=== PATIENT | female | born 1995 | race Caucasian/White ===

== ENCOUNTER 2016-08-08 22:07 | Emergency (ER) | payer SELFPAY ==
[~2016-08-08] VITALS: Ht 162.6 cm; Wt 67.0 kg
[~2016-08-08 22:07] MED LIST: CEPH-443 PO; IBUP-1542 PO; OXYC-279 PO
[2016-08-08 22:16] VITALS: Ht 162.6 cm; Wt 67.0 kg
--- NOTE | 2016-08-08 22:55 | ERA ---
ER Documentation Chief Complaint Date/Time DATE: 08/08/16 TIME: 22:54 Chief Complaint Abdominal pain x 2 days HPI The patient is a 20-year-old female, presenting to the ER because of abdominal pain and right low back pain for 2 days. She had similar symptoms previously from kidney infection, she complains of painful urination, intermittent cough for 1 week, nasal congestion. She denies neck pain, chest pain, dyspnea, diarrhea, constipation. She does not smoke nor drink Past medical/surgical history: None ROS All systems reviewed and are negative except as per history of present illness. Medications Home Meds Active Scripts Hydrocodone/Acetaminophen ([place] 5-325 Tablet) 1 Each Tablet, 1 TAB PO Q6H Y for PAIN, #7 TAB Prov:RAINA GEORGE MD 08/09/16 Ibuprofen* (Motrin*) 600 Mg Tab, 600 MG PO Q6H Y for PAIN AND OR ELEVATED TEMP, #20 TAB Prov:RAINA GEORGE MD 08/09/16 Ciprofloxacin Hcl* (Ciprofloxacin Hcl*) 500 Mg Tablet, 500 MG PO BID for 10 Days , TAB Prov:RAINA GEORGE MD 08/09/16 Oxycodone HCl/Acetaminophen (Percocet 5-325 mg Tablet) 1 Each Tablet, 1 EACH PO TID for PAIN, #9 TAB Prov:ANDREE PDERAZA MD 03/11/16 Ibuprofen* (Motrin*) 600 Mg Tab, 600 MG PO Q8 Y for PAIN, #30 TAB Prov:ANDREE PEDRAZA MD 03/11/16 Cephalexin* (Keflex*) 500 Mg Capsule, 500 MG PO QID for 5 Days, CAP Prov:ANDREE PEDRAZA MD 03/11/16 Allergies Allergies: Coded Allergies: No Known Allergy (Unverified , 03/11/16) PMhx/Soc History of Surgery: No Anesthesia Reaction: No Hx Neurological Disorder: No Hx Respiratory Disorders: No Hx Cardiac Disorders: No Hx Psychiatric Problems: No Hx Miscellaneous Medical Probl: No Hx Alcohol Use: No Hx Substance Use: No Hx Tobacco Use: No Physical Exam Vitals Vital Signs Date Time Temp Pulse Resp B/P Pulse Ox O2 Delivery O2 Flow Rate FiO2 08/09/16 02:20 104 18 99 Room Air 08/09/16 00:50 99.2 122 20 100 Room Air 08/08/16 22:16 103.0 170 20 132/81 100 Physical Exam Const: No acute distress. Head: Atraumatic. Eyes: Normal Conjunctiva. ENT: Normal External Ears, Nose and Mouth. Neck: Full range of motion. No meningismus. Resp: Clear to auscultation bilaterally. Cardio: Regular but tachycardic Abd: Soft, non distended, normal bowel sounds, positive right CVA area tenderness, mild right lower quadrant, right flank tenderness, no rigidity , rebound, CVA tenderness Skin: No petechiae or rashes. Back: No midline or flank tenderness. Ext: No cyanosis, or edema. Neur: Awake and alert. No focal deficit Psych: Normal Mood and Affect. Result Diagram: 08/08/16229908/08/162299 Results 24 hrs Laboratory Tests Test 08/08/16 23:00 08/09/16 01:20 Activated Partial Thromboplast Time 25.5Sec Alanine Aminotransferase (ALT/SGPT) 19IU/L Albumin 4.3g/dl Albumin/Globulin Ratio 1.04 Alkaline Phosphatase 88IU/L Anion Gap 21 Aspartate Amino Transf (AST/SGOT) 20IU/L Basophils # 0.110^3/ul Basophils % 0.3% Blood Urea Nitrogen 11mg/dl Calcium Level 9.2mg/dl Carbon Dioxide Level 22mmol/L Chloride Level 103mmol/L Creatinine 0.63mg/dl Direct Bilirubin 0.00mg/dl Eosinophils # 0.010^3/ul Eosinophils % 0.1% Globulin 4.10g/dl Glucose Level 110mg/dl Hematocrit 33.0% Hemoglobin 11.3g/dl INR International Normalized Ratio 0.97 Indirect Bilirubin 0.3mg/dl Lactic Acid Level 2.2mmol/L 0.8mmol/L Lymphocytes # 0.610^3/ul Lymphocytes % 4.3% Mean Corpuscular Hemoglobin 29.1pg Mean Corpuscular Hemoglobin Concent 34.2g/dl Mean Corpuscular Volume 85.1fl Mean Platelet Volume 10.3fl Monocytes # 0.310^3/ul Monocytes % 1.8% Neutrophils # 13.810^3/ul Neutrophils % 93.1% Nucleated Red Blood Cells # 0.010^3/ul Nucleated Red Blood Cells % 0.0/100WBC Platelet Count 49760^3/UL Potassium Level 3.7mmol/L Prothrombin Time 12.9Sec Prothrombin Time Ratio 1.0 Red Blood Count 3.8810^6/ul Red Cell Distribution Width 15.0% Sodium Level 142mmol/L Total Bilirubin 0.3mg/dl Total Protein 8.4g/dl Troponin I < 0.012ng/ml Urine Bacteria MODERATE Urine Bilirubin NEGATIVE Urine Clarity SLIGHTLY CLOUDY Urine Color LT. YELLOW Urine Glucose NEGATIVE% Urine Hemoglobin 1+ Urine Ketones NEGATIVE Urine Leukocyte Esterase 2+ Urine Microscopic RBC 10-25/HPF Urine Microscopic WBC >200/HPF Urine Nitrite POSITIVE Urine Specific [place] 1.015 Urine Squamous Epithelial Cells MODERATE Urine Total Protein TRACE Urine Urobilinogen 0.2 E.U./dL Urine pH 7.0 White Blood Count 14.810^3/ul Current Medications Medications (Trade) Dose Ordered Sig/Rory Route PRN Reason Start Time Stop Time Status Last Admin Dose Admin Acetaminophen 650 mg 650 mg ONCE STAT PO 08/08/16 22:57 08/08/16 22:59 DC 08/08/16 23:08 Sodium Chloride (NS) 2,080 ml @ 2,080 mls/hr BOLUS X1 ONCE IV 08/08/16 23:00 08/08/16 23:59 DC 08/08/16 23:08 Morphine Sulfate (morphine) 4 mg ONCE STAT IV 08/08/16 23:11 08/08/16 23:12 DC 08/08/16 23:18 Ondansetron HCl 4 mg 4 mg ONCE STAT IV 08/08/16 23:11 08/08/16 23:12 DC 08/08/16 23:18 Ceftriaxone Sodium (Rocephin) 50 ml @ 100 mls/hr ONCE ONCE IVPB 08/09/16 00:30 08/09/16 00:59 DC 08/09/16 00:42 Procedures/MDM EKG: Read by emergency physician Rate/Rhythm: Sinus tachycardia at 165 beats per min QRS, ST, T-waves: No ST elevation, no T wave inversion, shortened ME interval , inferior, anterior, lateral ST and T abnormality Impression: Abnormal EKG [place] [id number] Radiology Main Line: [phone] DIAGNOSTIC IMAGING REPORT Patient: MELISSA LANDIS : 1995 Age: 20 Sex: F MR #: [id number] DOS: 08/08/16 2257 Ordering MD: RAINA GEORGE MD Location: E/R Room/Bed: PROCEDURE: CHEST - 1 VIEW CLINICAL INDICATION: 20-year-old female with shortness of breath and sepsis. TECHNIQUE: A single frontal upright view of the chest was performed portably. The images were reviewed on a PACS workstation. COMPARISON: Chest x-ray December 26, 2015. FINDINGS: The cardiomediastinal silhouette has a normal appearance. There is no evidence for an infiltrate. The pulmonary vascularity is within normal limits. There is no evidence for pneumothorax or pneumomediastinum. The osseous structures are intact. IMPRESSION: No evidence for active cardiopulmonary disease. .Umberto Haskins MD, Date Time Electronically viewed and signed by .Umberto Haskins MD, MD on 08/08/2016 23:41 .M/ CC: RAINA GEORGE MD [place] [id number] Radiology Main Line: [phone] DIAGNOSTIC IMAGING REPORT Patient: MELISSA LANDIS : 1995 Age: 20 Sex: F MR #: [id number] DOS: 08/08/16 2301 Ordering MD: RAINA GEORGE MD Location: E/R Room/Bed: PROCEDURE: CT ABDOMEN/PELVIS WITHOUT CONTRAST CLINICAL INDICATION: 20-year-old female with abdominal pain. TECHNIQUE: The study was performed utilizing a [employer] 64-slice CT scanner. Direct axial sections were obtained through the abdomen and pelvis without the use of intravenous contrast material. Sagittal and coronal reformations were obtained. Automated exposure control and iterative reconstruction techniques were utilized for this examination. The images were reviewed on a PACS workstation. CTD/vol = 8.1 mGy; Total Exam DLP = 459.6 mGy- cm. COMPARISON: None. FINDINGS: The lung bases are unremarkable. There is no evidence for significant pleural effusion. The liver has a normal size and contour without focal areas of abnormal density. No intrahepatic nor extrahepatic biliary ductal dilatation is seen. The gallbladder demonstrates no wall thickening nor pericholecystic fluid. No biliary stones are evident. The pancreas is without areas of abnormal attenuation. The spleen is identified and has a normal size without abnormal density. The adrenal glands are unremarkable. The kidneys are without abnormal density. No hydroureteronephrosis nor nephroureterolithiasis is evident. The urinary bladder contains urine. There is fecalization within the terminal ileum. There is retained stool identified within the ascending and transverse colon without obstruction. The appendix is retrocecal and is without abnormal thickening or surrounding inflammatory reaction. The uterus is unremarkable. There is a right ovarian cyst measuring approximately 1.6 x 1.5 x 1.6 cm. There is no significant free fluid. The aortoiliac vessels are without aneurysmal dilatation. The osseous structures are intact. IMPRESSION: 1. No CT evidence for obstructive uropathy or renal calculi. 2. Fecalization of the distal small bowel with retained stool in the ascending and transverse colon without obstruction. 3. No CT evidence for appendicitis. 4. Right ovarian cyst. .Umberto Haskins MD, Date Time Electronically viewed and signed by .Umberto Haskins MD, MD on 08/09/2016 02:02 .M/ CC: RAINA GEORGE MD MEDICAL MAKING DECISION: The patient is a 20-year-old female, presenting with acute right pyelonephritis, acute dehydration, right ovarian cyst. She was treated with Tylenol for fever, morphine 4 mg IV for pain, Zofran formula IV for nausea, normal saline 30 mL/kg IV for acute dehydration, Rocephin 1 g IV for acute right pyelonephritis with good response. Her vital signs improved. Lactate level went from 2.2 to 0.8 after the aforementioned treatment. She is stable for outpatient follow-up the differential diagnoses considered include but are not limited to cholelithiasis, cholecystitis, cystitis, pancreatitis, hepatitis, gastritis, peptic ulcer disease, gastric ulcer, appendicitis, diverticulitis, cholangitis, choledocholithiasis, partial small bowel obstruction. Departure Diagnosis: Primary Impression: Pyelonephritis Additional Impressions: Right ovarian cyst Anemia Condition: Good Comments She was discharged with Karla Maya Motrin I discussed the findings with the patient. I advised the patient to follow-up with the primary physician in about 1-2 days, sooner if needed and return if any concern. The patient's blood pressure was elevated (>120/80) but appears stable without evidence of hypertension emergency or urgency. The patient was counseled about the risks of hypertension and urged to pursue outpatient monitoring and therapy within a week with their primary care physician. RAINA GEORGE MD Aug 08, 2016 22:55
[2016-08-08] MEDS ORDERED: ACETAMINOPHEN 325 MG TAB PO STA (22:57)
[2016-08-08] MEDS ORDERED: SOD CHLORIDE 0.9% IV ONE (23:00)
[2016-08-08] MEDS ORDERED: ONDANSETRON 4 MG INJ IV STA (23:11)
[2016-08-08] MEDS ORDERED: morphine 4 MG/ML VIAL IV STA (23:11)
[2016-08-08 23:29] LABS: ADD UMIC YES; URINE BILIRUBIN (Dip) NEGATIVE (NEGATIVE); URINE BLOOD (Dip) 1+ (NEGATIVE); URINE COLOR LT. YELLOW (YELLOW); URINE GLUCOSE (Dip) NEGATIVE (NEGATIVE); URINE KETONES (Dip) NEGATIVE (NEGATIVE); URINE LEUKOCYTE ESTERASE (Dip) 2+ (NEGATIVE); URINE NITRITE (Dip) POSITIVE (NEGATIVE); URINE TOTAL PROTEIN (Dip) TRACE (NEGATIVE); URINE UROBILINOGEN (Dip) 0.2 E.U./dL (0.1-1.0)
[2016-08-08 23:38] LABS: INR 0.97; PROTIME 12.9 Sec (12.2-14.2)
[2016-08-08 23:39] LABS: PARTIAL THROMBOPLASTIN TIME 25.5 Sec (25.0-35.0)
[2016-08-08 23:40] LABS: ALBUMIN 4.3 g/dl (3.3-4.9); CHLORIDE 103 mmol/L (97-110); POTASSIUM 3.7 mmol/L (3.5-5.1); SODIUM 142 mmol/L (135-144)
[2016-08-08 23:42] LABS: CREATININE 0.63 mg/dl (0.44-1.00)
--- NOTE | 2016-08-08 23:42 | RADRPT ---
PROCEDURE: CHEST - 1 VIEW CLINICAL INDICATION: 20-year-old female with shortness of breath and sepsis. TECHNIQUE: A single frontal upright view of the chest was performed portably. The images were rev iewed on a PACS workstation. COMPARISON: Chest x-ray December 26, 2015. FINDINGS: The cardiomediastinal silhouette has a normal appearance. There is no evidence for an infiltrate. T he pulmonary vascularity is within normal limits. There is no evidence for pneumothorax or pneumomed iastinum. The osseous structures are intact. IMPRESSION: No evidence for active cardiopulmonary disease. .Umberto Haskins MD, MD Date Time Electronically viewed and signed by .Umberto Haskins MD, on 08/08/2016 23:41 .M/
[2016-08-08 23:43] LABS: ALANINE AMINOTRANSFERASE 19 IU/L (13-69); ALBUMIN/GLOBULIN RATIO 1.04; ALKALINE PHOSPHATASE 88 IU/L (42-121); ANION GAP 21 (8-16); ASPARTATE AMINO TRANSFERASE 20 IU/L (15-46); BILIRUBIN,INDIRECT 0.3 mg/dl (0-1.1); BILIRUBIN,TOTAL 0.3 mg/dl (0.2-1.3); BLOOD UREA NITROGEN 11 mg/dl (7-20); CARBON DIOXIDE 22 mmol/L (21-31); GLUCOSE 110 mg/dl (70-220); TOTAL PROTEIN 8.4 g/dl (6.1-8.1)
[2016-08-08 23:44] LABS: CALCIUM 9.2 mg/dl (8.4-10.2)
[2016-08-08 23:55] LABS: BACTERIA,URINE MODERATE; SQUAMOUS EPITHELIAL CELL,UR MODERATE
[2016-08-09 00:07] LABS: TROPONIN-I < 0.012 ng/ml (0.00-0.12)
[2016-08-09 00:24] LABS: HEMOGLOBIN 11.3 g/dl (12.0-16.0); MEAN CORPUSCULAR HEMOGLOBIN 29.1 pg (29.0-33.0); MEAN CORPUSCULAR HGB CONC 34.2 g/dl (32.0-37.0); MEAN CORPUSCULAR VOLUME 85.1 fl (72.0-104.0); RED BLOOD COUNT 3.88 10^6/ul (4.20-5.40); UNCORRECTED WBC 14.8 10^3/ul (4.8-10.8); WHITE BLOOD COUNT 14.8 10^3/ul (4.8-10.8)
[2016-08-09 00:25] LABS: MEAN PLATELET VOLUME 10.3 fl (7.4-10.4); PLATELET COUNT 274 10^3/UL (140-440)
[2016-08-09 00:26] LABS: BASOPHIL # 0.1 10^3/ul (0.0-0.1); BASOPHILS % 0.3 % (0.0-2.0); EOSINOPHILS % 0.1 % (0.0-7.0); LYMPHOCYTES # 0.6 10^3/ul (0.8-2.9); LYMPHOCYTES % 4.3 % (18.0-55.0); MONOCYTE # 0.3 10^3/ul (0.3-0.9); MONOCYTES % 1.8 % (0.0-13.0); NEUTROPHIL # 13.8 10^3/ul (1.6-7.5); NEUTROPHILS % 93.1 % (30.0-74.0)
[2016-08-09] MEDS ORDERED: CEFTRIAXONE 1 GM/50 ML (PMX) 50 ML IVPB ONE (00:30)
[2016-08-09] MEDS ORDERED: IBUP-1542 PO (01:58)
[2016-08-09] MEDS ORDERED: CIPR500T4 PO (01:58)
[2016-08-09] MEDS ORDERED: HYDR-906 PO (01:59)
--- NOTE | 2016-08-09 02:03 | RADRPT ---
PROCEDURE: CT ABDOMEN/PELVIS WITHOUT CONTRAST CLINICAL INDICATION: 20-year-old female with abdominal pain. TECHNIQUE: The study was performed utilizing a [employer] VCT 64-slice CT scanner. Direct axia l sections were obtained through the abdomen and pelvis without the use of intravenous contrast mate rial. Sagittal and coronal reformations were obtained. Automated exposure control and iterative tahmina nstruction techniques were utilized for this examination. The images were reviewed on a PACS workst atcounts include [facility]. CTD/vol = 8.1 mGy; Total Exam DLP = 459.6 mGy-cm. COMPARISON: None. FINDINGS: The lung bases are unremarkable. There is no evidence for significant pleural effusion. The liver has a normal size and contour without focal areas of abnormal density. No intrahepatic nor extrahepa tic biliary ductal dilatation is seen. The gallbladder demonstrates no wall thickening nor perichole cystic fluid. No biliary stones are evident. The pancreas is without areas of abnormal attenuation. The spleen is identified and has a normal size without abnormal density. The adrenal glands are unr emarkable. The kidneys are without abnormal density. No hydroureteronephrosis nor nephroureterolithi asis is evident. The urinary bladder contains urine. There is fecalization within the terminal ileum . There is retained stool identified within the ascending and transverse colon without obstruction. The appendix is retrocecal and is without abnormal thickening or surrounding inflammatory reaction. The uterus is unremarkable. There is a right ovarian cyst measuring approximately 1.6 x 1.5 x 1.6 cm. There is no significant free fluid. The aortoiliac vessels are without aneurysmal dilatation. The osseous structures are intact. IMPRESSION: 1. No CT evidence for obstructive uropathy or renal calculi. 2. Fecalization of the distal small bowel with retained stool in the ascending and transverse colon without obstruction. 3. No CT evidence for appendicitis. 4. Right ovarian cyst. .Umberto Haskins MD, Date Time Electronically viewed and signed by .Umberto Haskins MD, on 08/09/2016 02:02 .[place]
[2016-08-09] MEDS ORDERED: KETOROLAC 30 MG INJ IV ONE (03:06)
[2016-08-09] MEDS ORDERED: KETOROLAC 30 MG INJ IV STA (03:12)
[2016-08-09] MEDS ORDERED: SOD CHLORIDE 0.9% 250 ML IV ONE (03:30)
[2016-08-09] MEDS ORDERED: SOD CHLORIDE 0.9% 1,000 ML IV ONE (03:30)
[2016-08-09 03:56] VITALS: BP 118/68; PULSE 99; RESP 18; TEMP 99
== END 2016-08-09 03:58 | disposition home or self-care (01) ==
LOC: FTE 22:07 → E/R 08-09 03:58
DX: N12 Tubulo-interstitial nephritis, not specified as acute or chronic (principal); N83.201 Unspecified ovarian cyst, right side; D64.9 Anemia, unspecified; R06.02 Shortness of breath
CPT/HCPCS: 36415; 71010; 74176; 80053; 81001; 83605; 84484; 85025; 85610; 85730; 87040; 87086; 93005; 96374; 96375; 99285; J0696; J1885; J2270; J2405; J7030; J7040; 81003

== ENCOUNTER 2016-08-11 12:08 | Inpatient (IN) | payer MEDICAID ==
[~2016-08-11] VITALS: Ht 129.5 cm; Wt 64.5 kg
[~2016-08-11 12:08] MED LIST changes: +CIPR500T4 PO; +HYDR-906 PO
[2016-08-11] MEDS ORDERED: IMIPENEM-CILAST 500MG IV (PMX) 100 ML IVPB STA (12:18)
[2016-08-11] MEDS ORDERED: SODIUM CHLORIDE 0.9% 1L BAG IV* STA (12:18)
[2016-08-11 12:45] LABS: BASOPHILS % 0.3 % (0.0-2.0); EOSINOPHILS % 0.2 % (0.0-7.0); HEMATOCRIT 35.2 % (37.0-47.0); HEMOGLOBIN 12.3 g/dl (12.0-16.0); LYMPHOCYTES % 12.2 % (18.0-55.0); MEAN CORPUSCULAR HEMOGLOBIN 29.2 pg (29.0-33.0); MEAN CORPUSCULAR VOLUME 83.6 fl (72.0-104.0); MEAN PLATELET VOLUME 8.4 fl (7.4-10.4); MONOCYTE # 0.5 10^3/ul (0.3-0.9); MONOCYTES % 5.8 % (0.0-13.0); NEUTROPHIL # 6.8 10^3/ul (1.6-7.5); NEUTROPHILS % 81.5 % (30.0-74.0); PLATELET COUNT 266 10^3/UL (140-440); RED BLOOD COUNT 4.21 10^6/ul (4.20-5.40); RED CELL DISTRIBUTION WIDTH 15.8 % (11.5-14.5); UNCORRECTED WBC 8.4 10^3/ul (4.8-10.8); WHITE BLOOD COUNT 8.4 10^3/ul (4.8-10.8)
[2016-08-11 12:47] LABS: ADD UMIC YES; URINE BILIRUBIN (Dip) NEGATIVE (NEGATIVE); URINE BLOOD (Dip) 3+ (NEGATIVE); URINE COLOR LT. YELLOW (YELLOW); URINE GLUCOSE (Dip) NEGATIVE (NEGATIVE); URINE KETONES (Dip) 3+ (NEGATIVE); URINE LEUKOCYTE ESTERASE (Dip) TRACE (NEGATIVE); URINE NITRITE (Dip) NEGATIVE (NEGATIVE); URINE TOTAL PROTEIN (Dip) TRACE (NEGATIVE); URINE UROBILINOGEN (Dip) 0.2 E.U./dL (0.1-1.0)
[2016-08-11 12:50] LABS: CONDITION 1; LH ANALYZER COMMENTS 1
[2016-08-11 12:55] LABS: POTASSIUM 3.5 mmol/L (3.5-5.1)
[2016-08-11 12:57] LABS: ALBUMIN/GLOBULIN RATIO 0.88; BILIRUBIN,INDIRECT 0.3 mg/dl (0-1.1); BILIRUBIN,TOTAL 0.3 mg/dl (0.2-1.3); CREATININE 0.75 mg/dl (0.44-1.00); TOTAL PROTEIN 8.5 g/dl (6.1-8.1)
[2016-08-11 12:58] LABS: CALCIUM 9.3 mg/dl (8.4-10.2)
[2016-08-11 13:03] LABS: BACTERIA,URINE MODERATE; SQUAMOUS EPITHELIAL CELL,UR MANY
--- NOTE | 2016-08-11 13:10 | ERA ---
ER Documentation Chief Complaint Date/Time DATE: 08/11/16 TIME: 12:20 Chief Complaint FEVER ABDOMINAL PAIN RADIATING FROM FLANK. NEEDS DIFFERENT ABX HPI 20-year-old female with a history of recurrent pyelonephritis, was seen in the ED 08/08/2016 for right flank pain diagnosed with pyelonephritis and discharged home on ciprofloxacin. Culture results today are positive for multidrug- resistant ESBL in the urine and blood and the patient was called back. She continues to complain of moderate, sharp and crampy, nonradiating right flank pain with nausea, occasional vomiting and fevers. Denies abdominal pain. Dysuria but no hematuria. Denies chest pain or palpitations. No shortness of breath or cough. Ongoing fevers and chills. ROS All systems reviewed and are negative except as per history of present illness. Medications Home Meds Active Scripts Hydrocodone/Acetaminophen ([place] 5-325 Tablet) 1 Each Tablet, 1 TAB PO Q6H Y for PAIN, #7 TAB Prov:RAINA GEORGE MD 08/09/16 Ibuprofen* (Motrin*) 600 Mg Tab, 600 MG PO Q6H Y for PAIN AND OR ELEVATED TEMP, #20 TAB Prov:RAINA GEORGE MD 08/09/16 Ciprofloxacin Hcl* (Ciprofloxacin Hcl*) 500 Mg Tablet, 500 MG PO BID for 10 Days , TAB Prov:RAINA GEORGE MD 08/09/16 Discontinued Scripts Oxycodone HCl/Acetaminophen (Percocet 5-325 mg Tablet) 1 Each Tablet, 1 EACH PO TID for PAIN, #9 TAB Prov:ANDREE PEDRAZA MD 03/11/16 Ibuprofen* (Motrin*) 600 Mg Tab, 600 MG PO Q8 Y for PAIN, #30 TAB Prov:ANDREE PEDRAZA MD 03/11/16 Cephalexin* (Keflex*) 500 Mg Capsule, 500 MG PO QID for 5 Days, CAP Prov:ANDREE PEDRAZA MD 03/11/16 Allergies Allergies: Coded Allergies: No Known Allergy (Unverified , 03/11/16) PMhx/Soc Reviewed in chart. As per HPI. History of Surgery: No Anesthesia Reaction: No Hx Neurological Disorder: No Hx Respiratory Disorders: No Hx Cardiac Disorders: No Hx Psychiatric Problems: No Hx Miscellaneous Medical Probl: Yes (pyelonephritis) Hx Alcohol Use: No Hx Substance Use: No Hx Tobacco Use: No Smoking Status: Never smoker FmHx No stroke or cancer Physical Exam Vitals Vital Signs Date Time Temp Pulse Resp B/P Pulse Ox O2 Delivery O2 Flow Rate FiO2 08/11/16 12:11 99.8 121 22 115/75 99 Physical Exam Const: Alert, mild distress due to pain. Head: Atraumatic Eyes: Normal Conjunctiva ENT: Normal External Ears, Nose and Mouth. Neck: Full range of motion. Nontender. No lymphadenopathy. Resp: Clear to auscultation bilaterally Cardio: Regular rate and rhythm, no murmurs Abd: Soft, non tender, non distended. Normal bowel sounds Skin: No petechiae or rashes Back: Right CVA tenderness Ext: No cyanosis, or edema Neur: Awake and alert Psych: Normal Mood and Affect Result Diagram: 08/11/16 1220 08/11/16 1220 Results 24 hrs Laboratory Tests Test 08/11/16 12:20 08/11/16 12:31 Alanine Aminotransferase (ALT/SGPT) 19IU/L Albumin 4.0g/dl Albumin/Globulin Ratio 0.88 Alkaline Phosphatase 93IU/L Anion Gap 19 Aspartate Amino Transf (AST/SGOT) 21IU/L Basophils # 0.010^3/ul Basophils % 0.3% Blood Morphology Comment Blood Urea Nitrogen 9mg/dl Calcium Level 9.3mg/dl Carbon Dioxide Level 25mmol/L Chloride Level 100mmol/L Creatinine 0.75mg/dl Direct Bilirubin 0.00mg/dl Eosinophils # 0.010^3/ul Eosinophils % 0.2% Globulin 4.50g/dl Glucose Level 114mg/dl Hematocrit 35.2% Hemoglobin 12.3g/dl Indirect Bilirubin 0.3mg/dl Lactic Acid Level 1.6mmol/L Lymphocytes # 1.010^3/ul Lymphocytes % 12.2% Mean Corpuscular Hemoglobin 29.2pg Mean Corpuscular Hemoglobin Concent 35.0g/dl Mean Corpuscular Volume 83.6fl Mean Platelet Volume 8.4fl Monocytes # 0.510^3/ul Monocytes % 5.8% Neutrophils # 6.810^3/ul Neutrophils % 81.5% Nucleated Red Blood Cells # 0.010^3/ul Nucleated Red Blood Cells % 0.0/100WBC Platelet Count 07717^3/UL Potassium Level 3.5mmol/L Red Blood Count 4.2110^6/ul Red Cell Distribution Width 15.8% Sodium Level 140mmol/L Total Bilirubin 0.3mg/dl Total Protein 8.5g/dl White Blood Count 8.410^3/ul Urine Bacteria MODERATE Urine Bilirubin NEGATIVE Urine Clarity SLIGHTLY CLOUDY Urine Color LT. YELLOW Urine Glucose NEGATIVE% Urine Hemoglobin 3+ Urine Ketones 3+ Urine Leukocyte Esterase TRACE Urine Microscopic RBC 5-10/HPF Urine Microscopic WBC 5-10/HPF Urine Nitrite NEGATIVE Urine Specific [place] 1.015 Urine Squamous Epithelial Cells MANY Urine Total Protein TRACE Urine Urobilinogen 0.2 E.U./dL Urine pH 5.5 Current Medications Medications (Trade) Dose Ordered Sig/Rory Route PRN Reason Start Time Stop Time Status Last Admin Dose Admin Sodium Chloride 2000 ml 2,000 ml BOLUS OVER 2 HOURS STAT IV* 08/11/16 12:18 08/11/16 12:20 DC 08/11/16 12:35 Imipenem/ Cilastatin Sodium (Primaxin 500 Mg/ 100 ml (Pmx)) 100 ml @ 100 mls/hr ONCE STAT IVPB 08/11/16 12:18 08/11/16 13:17 DC 08/11/16 12:39 Procedures/MDM DOCUMENTS REVIEWED: ED nurse, prior ED, prior records MEDICAL DECISION MAKIN-year-old female with a history of recurrent pyelonephritis, was seen in the ED 08/08/2016 for right flank pain diagnosed with pyelonephritis and discharged home on ciprofloxacin. Culture results today are positive for multidrug-resistant ESBL in the urine and blood and the patient was called back. Criteria for systemic inflammatory response syndrome include tachycardia and tachypnea. Normal saline 30 cc/kg bolus given over 2 hours and imipenem administered after cultures. Presentation consistent with sepsis secondary to pyelonephritis but no criteria for severe sepsis or septic shock. Patient be admitted to [facility] for further evaluation and management. Counseled patient regarding diagnosis, diagnostic results and plan for admission. CALLS/CONSULTS: Time 13:11, Dr. Khan, Recommends admission to [facility]. PATIENT CARE TRANSITIONED: Time: 14:00, Dr. Khan. Departure Diagnosis: Primary Impression: Pyelonephritis Additional Impressions: Sepsis Qualified Code: A41.51 - Sepsis due to Escherichia coli SIRS (systemic inflammatory response syndrome) Condition: Serious YAZMIN CARRIZALES MD 28, 2017 13:10
--- NOTE | 2016-08-11 13:17 | RADRPT ---
PROCEDURE: XR Chest AP portable CLINICAL INDICATION: Fever TECHNIQUE: An AP portable radiograph of the chest was submitted. COMPARISON: 08/08/2016 FINDINGS: Support Hardware: None Cardiovascular: The cardiovascular silhouette appears unremarkable. Lung Guardado: The lung guardado appear clear with no nodule, alveolar infiltrate, for a interstitial pr ominence evident. Pleural Spaces: No pneumothorax or pleural effusion is identified. Osseous Structures: The osseous structures appear intact. Soft Tissues: The soft tissues appear unremarkable. IMPRESSION: Stable unremarkable portable chest. Physician Sahra Date Time Electronically viewed and signed by Juarez Christianson Physician on 08/11/2016 13:16 RH/
[2016-08-11] MEDS ORDERED: ACETAMINOPHEN 325 MG TAB PO PRN ×2 (14:30)
[2016-08-11] MEDS ORDERED: ONDANSETRON 4 MG INJ IV PRN (14:30)
[2016-08-11 14:47] VITALS: TEMP 98.9
[2016-08-11 15:19] VITALS: Ht 129.5 cm; Wt 64.5 kg
[2016-08-11 15:41] LABS: BARBITURATES NEGATIVE (NEGATIVE); BENZODIAZEPINES NEGATIVE (NEGATIVE); CANNABINOIDS NEGATIVE (NEGATIVE); COCAINE NEGATIVE (NEGATIVE); OPIATES NEGATIVE (NEGATIVE)
[2016-08-11 16:03] VITALS: BP 120/77; PULSE 107; RESP 18
[2016-08-11] MEDS: SOD CHLORIDE 0.9% 1,000 ML IV SCH (16:21)
[2016-08-11] MEDS: IMIPENEM-CILAST 500MG IV (PMX) 100 ML IVPB SCH (17:30)
[2016-08-11] MEDS: ONDANSETRON 4 MG INJ IV PRN (18:26)
[2016-08-11] MEDS ORDERED: morphine 2 MG INJ IV PRN (19:00)
[2016-08-11 19:37] VITALS: BP 107/63; RESP 18
[2016-08-11] MEDS: DOCUSATE SODIUM 100 MG CAP PO SCH (21:15)
--- NOTE | 2016-08-11 22:59 | HP ---
DATE OF ADMISSION: 08/11/2016 PRESENTING COMPLAINT: The patient was called in because of positive blood, as well as urine culture s. HISTORY OF PRESENTING COMPLAINT: This is a 20-year-old female, who was seen in the emergency room 0 08/08/2016. She had presented at that time because of abdominal pain and right-sided low back pain t hat had been going on at that time for 2 days' duration. She has had similar kidney infections in t he past and she also had dysuria. She denied nausea or vomiting at that time. Her diagnosis was un complicated pyelonephritis and discharged on oral ciprofloxacin. Also at time, CT of the abdomen an d pelvis had shown constipation without obstruction, no appendicitis, and a right ovarian cyst. How ever, urine cultures and blood cultures were obtained, and these have come back positive today for E SBL Escherichia coli, both in the and urine and in the blood, and as such, she was called back for a dmission. As of today, the patient says she feels just slightly better, but she continues to have f ever and she is still tachycardic. Her white count; however, has improved and she is being admitted for IV antibiotics. PAST MEDICAL HISTORY: Previous UTI, pyelonephritis. PAST SURGICAL HISTORY: Patient denies. ALLERGIES: SHE HAS NO KNOWN DRUG ALLERGIES. SOCIAL HISTORY: Denies tobacco, alcohol, or illicit drug use. FAMILY HISTORY: Noncontributory. REVIEW OF SYSTEMS: A 12-point review of system was done. Pertinent findings are as noted in the HP I. PHYSICAL EXAMINATION VITAL SIGNS: Temperature 99.8, pulse is 121, respirations 22, blood pressure 115/75, saturation 99% on room air. GENERAL: She was alert, she was oriented, mildly lethargic. HEENT: Head is normocephalic. Pupils equal and reactive. NECK: Supple. CHEST: Clear. CARDIOVASCULAR: S1 and S2, no murmurs. ABDOMEN: Soft, nontender, nondistended, but she does have positive right costovertebral angle tende rness. EXTREMITIES: Negative for edema. SKIN: Devoid of rash or jaundice. LABORATORY VALUES: As mentioned earlier, her leukocytosis is better, but she continues to have a lo w hematocrit, but normocytic indices and normochromia. Her platelet count is also normal, but she d oes have a neutrophilia, which is also improved from previous. Her complete metabolic profile was u nremarkable. Lactic acid remains normal. Urinalysis is still positive for probable infection, but improved again from previous, whereas she had greater than 200 white cells, now she has only 5-10, b ut she does have positive ketones suggestive of dehydration. A chest x-ray today was reviewed and u nremarkable. CT scan that was done on 08/08/2016 is summarized above. MICROBIOLOGY: Blood cultures x2 grew out ESBL E. coli and urine culture grew out ESBL E. coli sensi tive only to imipenem, Zosyn, and amikacin. IMPRESSION: This is a 20-year-old female with the followin. Sepsis secondary to Extended-spectrum beta-lactamase Escherichia coli. and bacteremia. 2. Extended-spectrum beta-lactamase Escherichia coli urinary tract infection. 3. Extended-spectrum beta-lactamase Escherichia coli. bacteremia. 4. Acute dehydration with ketonuria. PLAN OF CARE: Admit her for IV antibiotics. I plan to repeat blood cultures. Admit the patient for IV antibiotic therapy, infectious disease consultation, repeat blood cultures, and supportive care. Further interventions will depend on how she responds to above measures. For prophylaxis, she will be placed on an H2 jorge a, and for DVT prophylaxis she is encouraged to ambu late as tolerated. Dictated By: SAMEER MENDES MD, BA/CHRISTINA Conf#: [id number] DID#: [id number]
[2016-08-12] MEDS: SOD CHLORIDE 0.9% 1,000 ML IV SCH ×5 (00:18→22:54)
[2016-08-12] MEDS: IMIPENEM-CILAST 500MG IV (PMX) 100 ML IVPB SCH ×4 (00:18→17:57)
[2016-08-12] MEDS: ONDANSETRON 4 MG INJ IV PRN (01:27)
[2016-08-12 07:25] VITALS: BP 108/68; RESP 18
[2016-08-12] MEDS: DOCUSATE SODIUM 100 MG CAP PO SCH ×2 (08:37→20:44)
[2016-08-12] MEDS: FAMOTIDINE 20 MG TAB PO SCH (08:37)
[2016-08-12 09:46] LABS: BASOPHILS % 0.6 % (0.0-2.0); EOSINOPHILS % 0.8 % (0.0-7.0); HEMOGLOBIN 10.4 g/dl (12.0-16.0); LYMPHOCYTES # 1.3 10^3/ul (0.8-2.9); LYMPHOCYTES % 28.2 % (18.0-55.0); MEAN CORPUSCULAR HEMOGLOBIN 28.9 pg (29.0-33.0); MEAN CORPUSCULAR HGB CONC 34.6 g/dl (32.0-37.0); MEAN CORPUSCULAR VOLUME 83.7 fl (72.0-104.0); MEAN PLATELET VOLUME 8.2 fl (7.4-10.4); MONOCYTE # 0.5 10^3/ul (0.3-0.9); MONOCYTES % 10.9 % (0.0-13.0); NEUTROPHIL # 2.7 10^3/ul (1.6-7.5); NEUTROPHILS % 59.5 % (30.0-74.0); PLATELET COUNT 225 10^3/UL (140-440); RED BLOOD COUNT 3.59 10^6/ul (4.20-5.40); RED CELL DISTRIBUTION WIDTH 15.8 % (11.5-14.5); UNCORRECTED WBC 4.5 10^3/ul (4.8-10.8); WHITE BLOOD COUNT 4.5 10^3/ul (4.8-10.8)
[2016-08-12 09:52] LABS: POTASSIUM 3.6 mmol/L (3.5-5.1)
[2016-08-12 09:55] LABS: CREATININE 0.66 mg/dl (0.44-1.00)
[2016-08-12 09:56] LABS: CALCIUM 8.2 mg/dl (8.4-10.2)
[2016-08-12 09:59] LABS: CONDITION 1; LH ANALYZER COMMENTS 1
--- NOTE | 2016-08-12 11:15 | PN ---
Date/Time of Note Date/Time of Note DATE: 08/12/16 TIME: 11:12 Assessment/Plan VTE Prophylaxis VTE Prophylaxis Intervention: ambulation Lines/Catheters IV [facility] Type [facility]from [facility] Peripheral IV Urinary Cath still in place: No Assessment/Plan Assessment/Plan 1. Sepsis secondary to Extended-spectrum beta-lactamase Escherichia coli. and bacteremia: improved 2. Extended-spectrum beta-lactamase Escherichia coli urinary tract infection. 3. Extended-spectrum beta-lactamase Escherichia coli. bacteremia. 4. Acute dehydration with ketonuria: resolved PLAN: Continue IV abx ID consult F/u repeat blood cultures Plan for d/c once blood cultures are negative on regimen recommended by ID Continue supportive care. Subjective 24 Hr Interval Summary Free Text/Dictation doing better Exam/Review of Systems Vital Signs Vitals Vital Signs Date Time Temp Pulse Resp B/P Pulse Ox O2 Delivery O2 Flow Rate FiO2 08/12/16 07:25 98.4 82 18 108/68 98 08/11/16 16:03 Room Air Intake and Output 08/11/16 08/11/16 08/12/16 15:00 23:00 07:00 Intake Total 730 ml 1500 ml Balance 730 ml 1500 ml Exam Constitutional: alert, oriented Head: atraumatic, normocephalic Eyes: PERRL ENMT: mucosa pink and moist Neck: supple Respiratory: clear to auscultation, normal air movement Cardiovascular: regular rate and rhythm Gastrointestinal: bowel sounds, non-tender, soft Genitourinary - Female: CVA tenderness (improved) Neurological: nl mental status, nl speech Results Result Diagram: 08/12/1625 08/12/16 0925 Results 24 hrs Laboratory Tests Test 08/11/16 12:20 08/11/16 12:31 08/11/16 15:34 08/11/16 17:58 Alanine Aminotransferase (ALT/SGPT) 19 Albumin 4.0 Albumin/Globulin Ratio 0.88 Alkaline Phosphatase 93 Anion Gap 19 H Aspartate Amino Transf (AST/SGOT) 21 Basophils # 0.0 Basophils % 0.3 Blood Morphology Comment Blood Urea Nitrogen 9 Calcium Level 9.3 Carbon Dioxide Level 25 Chloride Level 100 Creatinine 0.75 Direct Bilirubin 0.00 Eosinophils # 0.0 Eosinophils % 0.2 Globulin 4.50 H Glucose Level 114 Hematocrit 35.2 L Hemoglobin 12.3 Indirect Bilirubin 0.3 Lactic Acid Level 1.6 1.0 0.9 Lymphocytes # 1.0 Lymphocytes % 12.2 L Mean Corpuscular Hemoglobin 29.2 Mean Corpuscular Hemoglobin Concent 35.0 Mean Corpuscular Volume 83.6 Mean Platelet Volume 8.4 Monocytes # 0.5 Monocytes % 5.8 Neutrophils # 6.8 Neutrophils % 81.5 H Nucleated Red Blood Cells # 0.0 Nucleated Red Blood Cells % 0.0 Platelet Count 266 Potassium Level 3.5 Red Blood Count 4.21 Red Cell Distribution Width 15.8 H Sodium Level 140 Total Bilirubin 0.3 Total Protein 8.5 H White Blood Count 8.4 # Urine Amphetamines Screen NEGATIVE Urine Bacteria MODERATE Urine Barbiturates NEGATIVE Urine Benzodiazepines Screen NEGATIVE Urine Bilirubin NEGATIVE Urine Cannabinoids NEGATIVE Urine Clarity SLIGHTLY CLOUDY Urine Cocaine Screen NEGATIVE Urine Color LT. YELLOW Urine Glucose NEGATIVE Urine Hemoglobin 3+ H Urine Ketones 3+ H Urine Leukocyte Esterase TRACE H Urine Microscopic RBC 5-10 Urine Microscopic WBC 5-10 Urine Nitrite NEGATIVE Urine Opiates Screen NEGATIVE Urine Specific [place] 1.015 Urine Squamous Epithelial Cells MANY Urine Total Protein TRACE Urine Urobilinogen 0.2 E.U./dL Urine pH 5.5 Test 08/12/16 09:25 Anion Gap 14 Basophils # 0.0 Basophils % 0.6 Blood Morphology Comment Blood Urea Nitrogen 6 L Calcium Level 8.2 L Carbon Dioxide Level 25 Chloride Level 106 Creatinine 0.66 Eosinophils # 0.0 Eosinophils % 0.8 Glucose Level 124 Hematocrit 30.0 L Hemoglobin 10.4 L Lymphocytes # 1.3 Lymphocytes % 28.2 Magnesium Level 2.0 Mean Corpuscular Hemoglobin 28.9 L Mean Corpuscular Hemoglobin Concent 34.6 Mean Corpuscular Volume 83.7 Mean Platelet Volume 8.2 Monocytes # 0.5 Monocytes % 10.9 Neutrophils # 2.7 Neutrophils % 59.5 Nucleated Red Blood Cells # 0.0 Nucleated Red Blood Cells % 0.0 Platelet Count 225 Potassium Level 3.6 Red Blood Count 3.59 L Red Cell Distribution Width 15.8 H Sodium Level 141 White Blood Count 4.5 #L Medications Medications Current Medications Imipenem/ Cilastatin Sodium 100 ml @ 100 mls/hr Q6 IVPB Last administered on t 06:00; Admin Dose 100 MLS/HR; Start 08/11/16 at 18:00 Sodium Chloride (NS) 1,000 ml @ 125 mls/hr Q8H IV Last administered on 00:18; Admin Dose 125 MLS/HR; Start 08/11/16 at 14:30 Famotidine (Pepcid) 20 mg DAILY PO Last administered on 08/12/16 08:37; Admin Dose 20 MG; Start 08/12/16 at 09:00 Ondansetron HCl (Zofran Inj) 4 mg Q6H PRN IV NAUSEA AND/OR VOMITING; Start at 14:30 Acetaminophen (Tylenol Tab) 650 mg Q6H PRN PO PAIN AND OR ELEVATED TEMP Last administered on 08/11/16 18:23; Admin Dose 650 MG; Start 08/11/16 at 14:30 Docusate Sodium (Colace) 100 mg BID PO Last administered on 08/12/16 08:37; Admin Dose 100 MG; Start 08/11/16 at 21:00 Morphine Sulfate (morphine) 2 mg Q4H PRN IV pain Last administered on 01:27; Admin Dose 2 MG; Start 08/11/16 at 19:00 SAMEER MENDES Aug 12, 2016 11:15
--- NOTE | 2016-08-12 20:24 | CONS ---
DATE OF ADMISSION: 08/11/2016 DATE OF CONSULTATION: 08/12/2016 TYPE OF CONSULTATION: Infectious Disease. REASON FOR CONSULTATION: Antibiotic management. HISTORY OF PRESENT ILLNESS: Gladis Carolina is a 20-year-old female who comes in with p ositive blood and urine cultures. The patient was seen in the emergency room on 08/08/2016. At ottoniel t time, she presented with abdominal pain, right low back pain of 2 days' duration. She had similar problems in the past. She was found to have uncomplicated pyelonephritis and discharged on oral Ci pro. A CT scan of the abdomen and pelvis showing constipation without obstruction, no appendicitis and a right ovarian cyst; however, urine cultures and blood cultures were obtained and these have co me back today positive for ESBL E. coli in the urine and blood. She was therefore readmitted. PAST MEDICAL HISTORY: Operations as outlined. Previous UTI and pyelonephritis. FAMILY HISTORY: Noncontributory. SOCIAL HISTORY: She does not smoke, drink or abuse drugs. ALLERGIES: NONE TO PENICILLIN, SULFA OR FOODS. MEDICATIONS: Per chart. REVIEW OF SYSTEMS: As per HPI. PHYSICAL EXAMINATION: GENERAL: The patient is a well-developed, well-nourished female, alert, responsive, in no acute dis tress. VITAL SIGNS: Stable. She is afebrile. SKIN: Without generalized rash. HEENT: Within normal limits. NECK: Supple. LYMPH NODES: None palpable. CHEST: Decreased breath sounds at the bases. HEART: Without murmur or gallop. ABDOMEN: Soft, nontender. She has a positive right CVA tenderness. EXTREMITIES: Without cyanosis, clubbing, or edema. RECTAL AND GENITAL: Deferred. NEUROLOGIC: No focal neurological abnormalities. Her urine Gram stain is positive for gram-negative rods. Her chest x-ray shows stable unremarkable chest. IMPRESSION AND PLAN: The patient was begun on imipenem 500 q. 6 and will continue her on this regim en. I will dictate my findings to Dr. Khan. Dictated By: OMAR HESS MD, JD/CHRISTINA Conf#: [id number] DID#: [id number]
[2016-08-12 20:34] VITALS: BP 101/65; RESP 14
[2016-08-13] MEDS: IMIPENEM-CILAST 500MG IV (PMX) 100 ML IVPB SCH ×2 (00:07→06:09)
[2016-08-13] MEDS: SOD CHLORIDE 0.9% 1,000 ML IV SCH ×2 (06:51→14:30)
[2016-08-13 07:33] VITALS: BP 84/50; RESP 16
[2016-08-13 08:24] LABS: BASOPHILS % 0.6 % (0.0-2.0); EOSINOPHILS # 0.1 10^3/ul (0.0-0.5); EOSINOPHILS % 2.1 % (0.0-7.0); HEMATOCRIT 30.3 % (37.0-47.0); HEMOGLOBIN 10.6 g/dl (12.0-16.0); LYMPHOCYTES # 2.1 10^3/ul (0.8-2.9); LYMPHOCYTES % 38.6 % (18.0-55.0); MEAN CORPUSCULAR HEMOGLOBIN 29.2 pg (29.0-33.0); MEAN CORPUSCULAR VOLUME 83.4 fl (72.0-104.0); MEAN PLATELET VOLUME 8.4 fl (7.4-10.4); MONOCYTE # 0.9 10^3/ul (0.3-0.9); MONOCYTES % 15.8 % (0.0-13.0); NEUTROPHIL # 2.4 10^3/ul (1.6-7.5); NEUTROPHILS % 42.9 % (30.0-74.0); PLATELET COUNT 246 10^3/UL (140-440); POTASSIUM 3.8 mmol/L (3.5-5.1); RED BLOOD COUNT 3.63 10^6/ul (4.20-5.40); UNCORRECTED WBC 5.5 10^3/ul (4.8-10.8); WHITE BLOOD COUNT 5.5 10^3/ul (4.8-10.8)
[2016-08-13 08:27] LABS: CREATININE 0.58 mg/dl (0.44-1.00)
[2016-08-13 08:28] LABS: CALCIUM 8.4 mg/dl (8.4-10.2)
[2016-08-13 08:34] LABS: CONDITION 1; LH ANALYZER COMMENTS 1
[2016-08-13] MEDS: FAMOTIDINE 20 MG TAB PO SCH (08:42)
[2016-08-13] MEDS: DOCUSATE SODIUM 100 MG CAP PO SCH (08:42)
[2016-08-13 09:00] VITALS: BP 115/74; PULSE 89
--- NOTE | 2016-08-13 10:31 | PDOCDIS ---
Discharge Instructions CONDITION Patient Condition: Stable HOME CARE INSTRUCTIONS: Special Diet: REGULAR DIET ACTIVITY: Activity Restrictions: Slowly Increase Activity FOLLOW UP/APPOINTMENTS Appointments Take your medications, see your clinic doctor in 1 week. TREVOR BENITES. Aug 13, 2016 10:31
[2016-08-13] MEDS ORDERED: NITR-58 PO (10:32)
[2016-08-13] MEDS ORDERED: ONDA-43 PO (10:32)
--- NOTE | 2016-08-13 10:54 | DS ---
DATE OF ADMISSION: 08/11/2016 DATE OF DISCHARGE: 08/13/2016 HOSPITAL COURSE: This is a 20-year-old female originally admitted on 08/11/2016 being discharged ho [place] on 08/13/2016. The patient came in with abdominal pain. She was found with a urinary tract infe ction and signs of pyelonephritis. She was admitted to med/surg floor. Her urine culture did grow out extended spectrum beta-lactamase Escherichia coli and she also had positive blood culture for ES BL as well, so she was placed on antibiotics. Over the course of her hospital stay, her leukocytosi s improved. Her fever subsided. She was able to ambulate and tolerate a p.o. diet. She had no sig nificant abdominal pain or nausea, vomiting symptoms as well. Her repeat blood cultures preliminary were negative as well, and because the patient is clinically improved, vital signs are stable, she will be discharged home today in improved condition. DISCHARGE MEDICATIONS: Based on sensitivities, she will go home with: 1. Macrobid 100 mg p.o. b.i.d. for 10 more days. 2. Zofran 4 mg p.o. q.6h. p.r.n. 3. [place] 5/325, 6 hours p.r.n. 4. Ibuprofen 600 mg q.6h. p.r.n. FOLLOWUP: She will need to follow up with the primary care doctor as outpatient in next 1 to 2 week s. FINAL DIAGNOSES: 1. Abdominal pain secondary to urinary tract infection, pyelonephritis extended spectrum beta-lacta leny Escherichia coli urinary tract infection, now on antibiotics. 2. Extended-spectrum beta-lactamase Escherichia coli bacteremia, improving. TIME SPENT DISCHARGING PATIENT: 40 minutes. Dictated By: TREVOR BHAT Conf#: [id number] DID#: [id number]
[2016-08-13] MEDS ORDERED: ERTA1VIA IV (11:36)
[2016-08-13] MEDS ORDERED: LIDOCAINE 1% (MDV) 20 ML INJ SC ONE (12:00)
--- NOTE | 2016-08-13 12:04 | DS ---
DATE OF ADMISSION: 08/11/2016 DATE OF DISCHARGE: 08/11/2016 ADDENDUM Her discharge medication we are also doing to Invanz 1 gram IV daily for 12 more days. This is to t reat her beta-lactamase Escherichia coli bacteremia. Dictated By: TREVOR BHAT Conf#: [id number] DID#: [id number]
[2016-08-13] MEDS ORDERED: ERTAPENEM SODIUM 1 GM in SOD CHLORIDE 0.9% 100 ML IVPB SCH (12:30)
[2016-08-13] MEDS ORDERED: DOCUSATE SODIUM 100 MG CAP PO SCH (13:00)
--- NOTE | 2016-08-13 13:06 | PN ---
DATE: 08/13/2016 SUBJECTIVE: No acute changes. The patient is alert, feels better, looks comfortable, afebrile. LABORATORIES: WBC today 5.5, no shift, no bands. BUN 5, creatinine 0.58. ANTIMICROBIALS: Invanz. MICROBIOLOGY: Blood culture on 08/08/2016 grew E. coli ESBL. Urine culture on 08/08/2016 and 08/11/2016 growing E. coli ESBL. Blood culture on 08/11/2016 negative. PHYSICAL EXAMINATION: GENERAL: This is a well-nourished, well-developed, young woman who is alert and in no distress. HEENT: Head atraumatic, normocephalic. Sclerae anicteric. Buccal mucosa pink. NECK: Supple, trachea midline. CHEST: Rise symmetrical. Breath sounds clear. HEART: S1, S2. ABDOMEN: Soft. Bowel tones present. EXTREMITIES: Without cyanosis or edema. ASSESSMENT: 1. Escherichia coli extended-spectrum beta-lactamase urinary tract infection with bacteremia. 2. Constipation. 3. Systemic inflammatory response syndrome secondary to above. PLAN: The patient remains stable. We are going to recommend PICC line placement and discharge on IV Invanz 1 gram daily to complete 2 weeks of antibiotics. Above was discussed with patient and her mother at bedside. Above was discussed with Dr. Harden Dictated By: MOOSE PADILLA HAY CHOPPER for OMAR SHELDON/NTS Conf#: [id number] DID#: [id number] MTDD
--- NOTE | 2016-08-13 16:02 | RADRPT ---
PROCEDURE: XR Chest. CLINICAL INDICATION: Check PICC line position. TECHNIQUE: Single frontal view. COMPARISON: 08/11/2016. FINDINGS: There is a right arm PICC line with the tip in the lower superior vena cava. The lungs are clear. The heart size is normal. There is no pleural effusion. There is no pneumothorax. IMPRESSION: 1. Satisfactory position of right arm PICC line. 2. Otherwise normal chest radiograph. RPTAT: QQ .Ronnie Bustos MD, MD Date Time Electronically viewed and signed by .Ronnie Bustos MD, MD on 08/13/2016 16:01 .R/
--- NOTE | 2016-08-13 17:02 | RADRPT ---
PROCEDURE: Ultrasound guidance for placement of needle in right upper extremity vein. CLINICAL INDICATION: Venous access. TECHNIQUE: Limited sonography of the right upper extremity was performed. Ultrasound images were recorded and stored in the patient's medical record. COMPARISON: None. FINDINGS: The ultrasound images demonstrate a patent right upper extremity vein. The PICC line was inserted b y the PICC line nurse. IMPRESSION: 1. Ultrasound guidance for a needle placement in a right upper extremity vein. 2. The visualized right upper extremity vein is patent. RPTAT: QQ .Ronnie Bustos MD, MD Date Time Electronically viewed and signed by .Ronnie Bustos MD, MD on 08/13/2016 17:01 .R/
== END 2016-08-13 18:45 | disposition home health service (06) | DRG 872 ==
LOC: E/R 12:08 → MS2 14:03
PROVIDERS: ADMIT Family Medicine; ATTEND Family Medicine
PROC: 02HV33Z Insertion of Infusion Device into Superior Vena Cava, Percutaneous Approach (ICD-10-PCS; principal; 2016-08-13)
DX: A41.9 Sepsis, unspecified organism (principal); N10 Acute pyelonephritis; N39.0 Urinary tract infection, site not specified; B96.20 Unspecified Escherichia coli [E. coli] as the cause of diseases classified elsewhere; E86.0 Dehydration; R82.4 Acetonuria; B96.89 Other specified bacterial agents as the cause of diseases classified elsewhere; Z16.12 Extended spectrum beta lactamase (ESBL) resistance
CPT/HCPCS: 36415; 36569; 71010; 76937; 80048; 80053; 80307; 81001; 81003; 83605; 83735; 85025; 87040; 87086; 96374; J0743; J1335; J2270; J2405; J7030

== ENCOUNTER 2016-09-17 14:58 | Emergency (ER) | payer BC, MEDICAID ==
[~2016-09-17] VITALS: Wt 63.9 kg
[~2016-09-17 14:58] MED LIST changes: -CEPH-443 PO; -CIPR500T4 PO; +ERTA1VIA IV; +NITR-58 PO; +ONDA-43 PO; -OXYC-279 PO
[2016-09-17] MEDS ORDERED: ONDANSETRON 4 MG INJ IV STA (17:59)
[2016-09-17] MEDS ORDERED: SOD CHLORIDE 0.9% 1,000 ML IV STA (17:59)
[2016-09-17] MEDS ORDERED: ACETAMINOPHEN 325 MG TAB PO ONE (18:00)
[2016-09-17 19:14] LABS: ADD SCAN DIFF NO
[2016-09-17 19:22] LABS: BASOPHILS % 0.3 % (0.0-2.0); HEMATOCRIT 34.1 % (37.0-47.0); HEMOGLOBIN 11.2 g/dl (12.0-16.0); LYMPHOCYTES # 1.4 10^3/ul (0.8-2.9); LYMPHOCYTES % 9.2 % (15.0-51.0); MEAN CORPUSCULAR HGB CONC 32.8 g/dl (32.0-37.0); MEAN CORPUSCULAR VOLUME 85.3 fl (82.0-101.0); MONOCYTE # 1.1 10^3/ul (0.3-0.9); MONOCYTES % 6.7 % (0.0-11.0); NEUTROPHIL # 13.1 10^3/ul (1.6-7.5); NEUTROPHILS % 83.5 % (39.0-77.0); PLATELET COUNT 288 10^3/UL (140-415); WHITE BLOOD COUNT 15.7 10^3/ul (4.8-10.8)
[2016-09-17 19:23] LABS: ADD UMIC YES; URINE BILIRUBIN (Dip) NEGATIVE (NEGATIVE); URINE BLOOD (Dip) 3+ (NEGATIVE); URINE COLOR LT. YELLOW (YELLOW); URINE GLUCOSE (Dip) NEGATIVE (NEGATIVE); URINE KETONES (Dip) 3+ (NEGATIVE); URINE LEUKOCYTE ESTERASE (Dip) 1+ (NEGATIVE); URINE NITRITE (Dip) NEGATIVE (NEGATIVE); URINE TOTAL PROTEIN (Dip) 1+ (NEGATIVE); URINE UROBILINOGEN (Dip) 0.2 E.U./dL (0.1-1.0)
[2016-09-17 19:39] LABS: ALBUMIN 4.2 g/dl (3.3-4.9)
[2016-09-17 19:40] LABS: POTASSIUM 3.9 mmol/L (3.5-5.1)
[2016-09-17 19:42] LABS: BILIRUBIN,INDIRECT 0.3 mg/dl (0-1.1); BILIRUBIN,TOTAL 0.3 mg/dl (0.2-1.3); CREATININE 0.74 mg/dl (0.44-1.00); TOTAL PROTEIN 8.4 g/dl (6.1-8.1)
[2016-09-17 19:43] LABS: CALCIUM 9.6 mg/dl (8.4-10.2)
[2016-09-17 19:44] LABS: BACTERIA,URINE MODERATE
[2016-09-17] MEDS ORDERED: PIPER-TAZO 3.375 GM IV (PMX) 100 ML IVPB ONE (20:00)
--- NOTE | 2016-09-17 20:32 | ERA ---
ER Documentation Chief Complaint Date/Time DATE: 09/17/16 TIME: 20:18 Chief Complaint R SIDE FLANK PAIN WITH DYSURIA FOR A FEW DAYS. NAUSEA AND VOMITING HPI 21-year-old woman complaining of 3 days of left flank pain similar to previous episodes. She was diagnosed and treated for pyelonephritis last month and required 2 weeks of IV ertapenem through a PICC line as well as nitrofurantoin orally. She states her symptoms resolved and she is been without dysuria or fevers 2 weeks although 3 days ago she began feeling left flank pain and dysuria with tactile fevers. She denies vaginal discharge, no cough, no chest pain or shortness of breath, no vomiting or diarrhea. ROS All systems reviewed and are negative except as per history of present illness. Medications Home Meds Active Scripts Ertapenem Sodium (Invanz) 1 Gm Vial.port, 1 GM IV DAILY for 12 Days Prov:TREVOR BENITES S. 08/13/16 Nitrofurantoin Monohyd Macrocr* (Macrobid*) 100 Mg Capsr, 100 MG PO BID for 10 Days, CAP Prov:TREVOR BENITES S. 08/13/16 Ibuprofen* (Motrin*) 600 Mg Tab, 600 MG PO Q6H Y for PAIN AND OR ELEVATED TEMP, #20 TAB Prov:RAINA GEORGE MD 08/09/16 Discontinued Scripts Ondansetron Hcl* (Zofran*) 4 Mg Tab, 4 MG PO Q6H Y for NAUSEA AND OR VOMITING, # 20 TAB Prov:TREVOR BENITES S. 08/13/16 Hydrocodone/Acetaminophen ([place] 5-325 Tablet) 1 Each Tablet, 1 TAB PO Q6H Y for PAIN, #7 TAB Prov:RAINA GEORGE MD 08/09/16 Allergies Allergies: Coded Allergies: No Known Allergy (Unverified , 09/17/16) PMhx/Soc Recent pyelonephritis History of Surgery: No Anesthesia Reaction: No Hx Neurological Disorder: No Hx Respiratory Disorders: No Hx Cardiac Disorders: No Hx Psychiatric Problems: No Hx Miscellaneous Medical Probl: No Hx Alcohol Use: No Hx Substance Use: No Hx Tobacco Use: No Smoking Status: Never smoker FmHx Family History: No diabetes Physical Exam Vitals Vital Signs Date Time Temp Pulse Resp B/P Pulse Ox O2 Delivery O2 Flow Rate FiO2 09/17/16 18:45 99.7 88 20 106/55 98 Room Air 09/17/16 15:03 100.6 139 20 135/80 98 Physical Exam GENERAL: Well-developed, well-nourished, dehydrated, febrile HEENT: Dry mucous membranes, pink conjunctiva, no cervical spine tenderness or step-off deformities, no goiter, no jaundice or icterus, extraocular movements intact without pain. No submandibular induration, and no pharyngeal erythema NEURO: Alert and oriented 3, cranial nerves II through XII intact bilaterally, pupils equal round reactive to light, no focal deficits or facial asymmetry, sensation intact distally Strength 5/5 in upper and lower extremities bilaterally CARDIAC: Tachycardic and regular, no murmurs rubs or gallops LUNGS: Clear bilaterally no wheezing crackles or stridor ABDOMEN: Soft nontender, no guarding, no rigidity, no rebound, no psoas sign no obturator sign. Normoactive bowel sounds SKIN: Warm and dry to touch, no abrasions, contusions, or hematomas, no lacerations, no ecchymosis, no target lesions, and without ulcers EXTREMITIES: No clubbing cyanosis or edema, calves are bilaterally symmetrical, no Homans sign, no popliteal cord sign. Distal pulses equal and bilateral PSYCH: Normal affect without agitation or irritability Result Diagram: 09/17/16182909/17/161829 Results 24 hrs Laboratory Tests Test 09/17/16 18:30 Alanine Aminotransferase (ALT/SGPT) 28IU/L Albumin 4.2g/dl Albumin/Globulin Ratio 1.00 Alkaline Phosphatase 107IU/L Anion Gap 21 Aspartate Amino Transf (AST/SGOT) 39IU/L Basophils # 0.010^3/ul Basophils % 0.3% Blood Urea Nitrogen 9mg/dl Calcium Level 9.6mg/dl Carbon Dioxide Level 24mmol/L Chloride Level 98mmol/L Creatinine 0.74mg/dl Direct Bilirubin 0.00mg/dl Eosinophils # 0.010^3/ul Eosinophils % 0.0% Globulin 4.20g/dl Glucose Level 107mg/dl Hematocrit 34.1% Hemoglobin 11.2g/dl Indirect Bilirubin 0.3mg/dl Lipase 76U/L Lymphocytes # 1.410^3/ul Lymphocytes % 9.2% Mean Corpuscular Hemoglobin 28.0pg Mean Corpuscular Hemoglobin Concent 32.8g/dl Mean Corpuscular Volume 85.3fl Mean Platelet Volume 11.0fl Monocytes # 1.110^3/ul Monocytes % 6.7% Neutrophils # 13.110^3/ul Neutrophils % 83.5% Nucleated Red Blood Cells # 0.010^3/ul Nucleated Red Blood Cells % 0.0/100WBC Platelet Count 77412^3/UL Potassium Level 3.9mmol/L Red Blood Count 4.0010^6/ul Red Cell Distribution Width 14.0% Sodium Level 139mmol/L Total Bilirubin 0.3mg/dl Total Protein 8.4g/dl Urine Bacteria MODERATE Urine Bilirubin NEGATIVE Urine Clarity TURBID Urine Color LT. YELLOW Urine Epithelial Cells MODERATE Urine Glucose NEGATIVE% Urine Hemoglobin 3+ Urine Ketones 3+ Urine Leukocyte Esterase 1+ Urine Microscopic RBC 2-5/HPF Urine Microscopic WBC >200/HPF Urine Nitrite NEGATIVE Urine Specific [place] 1.015 Urine Total Protein 1+ Urine Urobilinogen 0.2 E.U./dL Urine pH 6.0 White Blood Count 15.710^3/ul Current Medications Medications (Trade) Dose Ordered Sig/Rory Route PRN Reason Start Time Stop Time Status Last Admin Dose Admin Sodium Chloride (NS) 1,000 ml @ 1,000 mls/hr Q1H STAT IV 09/17/16 17:59 09/17/16 18:58 DC 09/17/16 18:41 Ondansetron HCl (Zofran Inj) 4 mg ONCE STAT IV 09/17/16 17:59 09/17/16 18:04 DC 09/17/16 18:41 Acetaminophen 650 mg 650 mg ONCE ONCE PO 09/17/16 18:00 09/17/16 18:04 DC 09/17/16 18:42 Piperacillin Sod/ Tazobactam Sod (Zosyn 3.375gm/ 100 ml (Pmx)) 100 ml @ 200 mls/hr ONCE ONCE IVPB 09/17/16 20:00 09/17/16 20:29 09/17/16 20:11 Procedures/MDM IV line was established patient was placed on coffee urn attendant rhythm strip revealed a sinus tachycardia at about 110 bpm with upright P and T waves. Patient was febrile. Blood and urine cultures have been ordered results are pending I will follow-up. I reviewed recent urine cultures, which show sensitivity to Zosyn. I administered 1 L normal saline intravenously, acetaminophen 650 mg p.o., Zofran 4 mg IV 1. Urine analysis was positive for infection. I treated her here with Pipracil and tazobactam 3.375 g IV 1. CBC revealed a leukocytosis of 16, electrolytes are unremarkable, liver function tests are normal, troponin was negative. test was negative. CT scan of the abdomen and pelvis has been ordered results are pending I will follow-up. I spoke to her health insurance directed physician who accepted her [facility] for continued medical management and IV antibiotics. Departure Diagnosis: Primary Impression: Acute pyelonephritis Condition: ANDREE Cohen MD Sep 17, 2016 20:31
--- NOTE | 2016-09-17 21:36 | RADRPT ---
PROCEDURE: CT Abdomen and Pelvis without contrast CLINICAL INDICATION: Possible stone TECHNIQUE: Transaxial images were obtained through the abdomen and pelvis on a multi-slice scanner without the intravenous contrast administration. No oral contrast had previously been given. Sagit henrietta and coronal re-formations were subsequently reconstructed. One or more of the following dose reduction techniques were used: - Automated exposure control. - Adjustment of the mA and/or kV according to patient size. - Use of iterative reconstruction technique. Radiation dose: CTDIvol = 6.65 mGy; DLP = 325.65 mGy-cm. COMPARISON: 08/08/2016 FINDINGS: Lung bases: The visualized lung bases appear unremarkable. Liver: Normal in size and in attenuation. There is no focal lesion. Gallbladder: The wall is not thickened. No radiopaque stones are identified. Bile ducts: The intra and extrahepatic bile ducts are normal in caliber. Pancreas: Appears normal with no mass or inflammation evident. Spleen: Normal in size with no focal lesion. Adrenals: Normal with no mass identified. Kidneys, ureters and bladder: The kidneys are normal in size and there is no mass, pathological calc ification, or hydronephrosis evident. There is no perinephric stranding. The ureters are normal in c aliber and no ureteroliths are identified. The bladder wall appears mildly diffusely thickened Reproductive organs: There is a 1.3 cm right ovarian cyst. The uterus is fairly midline with slight thickening of the endometrial cavity. Stomach and bowel: The bowel appears unremarkable with no evidence of bowel obstruction or inflammat ion. There is less stool within the colon than seen on the previous study. The stomach appears unrem arkable. Appendix: A normal vermiform appendix is tentatively identified. Peritoneum: No free intraperitoneal fluid or air is identified. Aorta: Normal in caliber with no aneurysmal dilatation. IVC: Unremarkable. Lymph nodes: No pathologically enlarged nodes are identified. Osseous structures: The osseous elements appear intact. IMPRESSION: 1. When compared to the previous CT of 08/08/2016, there is again no evidence of obstructive uropat hy or ureterolithiasis. The bladder wall is mildly more diffusely thickened. Cystitis cannot be ex cluded. 2. Less stool seen within the colon than on the previous study and there is no evidence of bowel ob struction or inflammation. 3. A 1.3 cm right ovarian cyst is again evident. 4. There is no free intraperitoneal fluid or air. Juarez Christianson Physician Date Time Electronically viewed and signed by Juarez Christianson Physician on 09/17/2016 21:36 /
[2016-09-17 23:30] VITALS: BP 119/62; PULSE 97; RESP 20; TEMP 98.3
== END 2016-09-17 23:52 | disposition home or self-care (01) ==
LOC: E/R 14:58
DX: N10 Acute pyelonephritis (principal)
CPT/HCPCS: 36415; 74176; 80053; 81001; 83690; 85025; 87040; 87086; 96374; 96375; J2405; J2543; J7030; Z7502; Z7610; 81003

== ENCOUNTER 2017-03-10 22:42 | Emergency (ER) | payer BC ==
[~2017-03-10] VITALS: Ht 160 cm; Wt 62.7 kg
[~2017-03-10 22:42] MED LIST changes: -HYDR-906 PO; -ONDA-43 PO
[2017-03-10 22:44] VITALS: Ht 160 cm; Wt 62.7 kg
[2017-03-10] MEDS ORDERED: ONDANSETRON 4 MG INJ IV STA (23:31)
[2017-03-10] MEDS ORDERED: KETOROLAC 30 MG INJ IV STA (23:31)
[2017-03-10] MEDS ORDERED: ACETAMINOPHEN 500 MG TAB PO STA (23:41)
--- NOTE | 2017-03-10 23:41 | ERD ---
ER Documentation Chief Complaint Date/Time DATE: 03/10/17 TIME: 23:38 Chief Complaint L fkank pain x 2 days HPI 21 year old female comes in with left sided flank pain for 2 days. Patient has flank pain on the left that is achy, nonradiating, with painful urination and a fever. She reports 1 episode of nausea vomiting. She states she has had UTIs in the past, denies history of kidney stones, disregard triage note. ROS All systems reviewed and are negative except as per history of present illness. Medications Home Meds Active Scripts Ibuprofen* (Motrin*) 600 Mg Tab, 600 MG PO Q6, #30 TAB Prov:RUTHANN CABRERA PA-C 03/11/17 Cephalexin* (Keflex*) 500 Mg Capsule, 500 MG PO TID for 10 Days, CAP Prov:RUTHANN CABRERA PA-C 03/11/17 Ertapenem Sodium (Invanz) 1 Gm Vial.port, 1 GM IV DAILY for 12 Days Prov:TREVOR BENITES S. 08/13/16 Nitrofurantoin Monohyd Macrocr* (Macrobid*) 100 Mg Capsr, 100 MG PO BID for 10 Days, CAP Prov:THONG BENITESP S. 08/13/16 Ibuprofen* (Motrin*) 600 Mg Tab, 600 MG PO Q6H Y for PAIN AND OR ELEVATED TEMP, #20 TAB Prov:RAINA GEORGE MD 08/09/16 Allergies Allergies: Coded Allergies: No Known Allergy (Unverified , 09/17/16) PMhx/Soc Medical and Surgical Hx: pt denies Surgical Hx History of Surgery: No Anesthesia Reaction: No Hx Neurological Disorder: No Hx Respiratory Disorders: No Hx Cardiac Disorders: No Hx Psychiatric Problems: No Hx Miscellaneous Medical Probl: Yes (kidney infection) Hx Alcohol Use: No Hx Substance Use: No Hx Tobacco Use: No Smoking Status: Never smoker Physical Exam Vitals Vital Signs Date Time Temp Pulse Resp B/P Pulse Ox O2 Delivery O2 Flow Rate FiO2 03/10/17 22:44 102.0 139 20 117/73 98 Recheck vitals: Temperature 99, pulse of 98 Physical Exam Const: [] Head: Atraumatic Eyes: Normal Conjunctiva ENT: Normal External Ears, Nose and Mouth. Neck: Full range of motion..~ No meningismus. Resp: Clear to auscultation bilaterally Cardio: Regular rate and rhythm, no murmurs Abd: Soft, non tender, non distended. Normal bowel sounds Skin: No petechiae or rashes Back: No midline or flank tenderness Ext: No cyanosis, or edema Neur: Awake and alert Psych: Normal Mood and Affect Result Diagram: 03/11/17 0001 03/11/17 0001 Results 24 hrs Laboratory Tests Test 03/10/17 23:05 03/11/17 00:01 Urine Color YELLOW Urine Clarity SLIGHTLY CLOUDY Urine pH 9.0 Urine Specific Edgar 1.011 Urine Ketones NEGATIVEmg/dL Urine Nitrite POSITIVEmg/dL Urine Bilirubin NEGATIVEmg/dL Urine Urobilinogen NEGATIVEmg/dL Urine Leukocyte Esterase 2+Yasmin/ul Urine Microscopic RBC 5/HPF Urine Microscopic WBC 78/HPF Urine Squamous Epithelial Cells FEW/HPF Urine Bacteria FEW/HPF Urine Hemoglobin 1+mg/dL Urine Glucose NEGATIVEmg/dL Urine Total Protein NEGATIVEmg/dl White Blood Count 13.410^3/ul Red Blood Count 4.1110^6/ul Hemoglobin 11.1g/dl Hematocrit 33.7% Mean Corpuscular Volume 82.0fl Mean Corpuscular Hemoglobin 27.0pg Mean Corpuscular Hemoglobin Concent 32.9g/dl Red Cell Distribution Width 14.0% Platelet Count 79841^3/UL Mean Platelet Volume 10.6fl Neutrophils % 77.4% Lymphocytes % 13.2% Monocytes % 8.7% Eosinophils % 0.1% Basophils % 0.3% Nucleated Red Blood Cells % 0.0/100WBC Neutrophils # (Manual) 10.410^3/ul Lymphocytes # 1.810^3/ul Monocytes # 1.210^3/ul Eosinophils # 0.010^3/ul Basophils # 0.010^3/ul Nucleated Red Blood Cells # 0.010^3/ul Sodium Level 138mmol/L Potassium Level 3.5mmol/L Chloride Level 98mmol/L Carbon Dioxide Level 27mmol/L Anion Gap 17 Blood Urea Nitrogen 10mg/dl Creatinine 0.89mg/dl Glucose Level 97mg/dl Calcium Level 9.4mg/dl Total Bilirubin 0.6mg/dl Direct Bilirubin 0.00mg/dl Indirect Bilirubin 0.6mg/dl Aspartate Amino Transf (AST/SGOT) 18IU/L Alanine Aminotransferase (ALT/SGPT) 17IU/L Alkaline Phosphatase 92IU/L Total Protein 8.6g/dl Albumin 4.2g/dl Globulin 4.40g/dl Albumin/Globulin Ratio 0.95 Current Medications Medications (Trade) Dose Ordered Sig/Rory Route PRN Reason Start Time Stop Time Status Last Admin Dose Admin Ondansetron HCl (Zofran Inj) 4 mg ONCE STAT IV 03/10/17 23:31 03/10/17 23:33 DC 03/10/17 23:58 Ketorolac Tromethamine 30 mg 30 mg ONCE STAT IV 03/10/17 23:31 03/10/17 23:33 DC 03/10/17 23:58 Sodium Chloride (NS) 1,000 ml @ 1,000 mls/hr Q1H ONCE IV 03/11/17 00:00 03/11/17 00:59 DC 03/11/17 00:02 Acetaminophen 1000 mg 1,000 mg ONCE STAT PO 03/10/17 23:41 03/10/17 23:42 DC 03/10/17 23:57 Ceftriaxone Sodium (Rocephin) 50 ml @ 100 mls/hr ONCE ONCE IVPB 03/11/17 02:00 03/11/17 02:29 DC 03/11/17 02:08 Procedures/MDM ED COURSE: patient had an IV line established, given toradol 30 mg IV, NS1L IV, labs and urine obtained. MDM: 21 yo female comes in with acute pyelonephritis, patient has evidence of CVA tenderness on the left, with history of fever and vomiting. History and physical examination is not concerning for a kidney stone, or septic kidney stone or kidney abscess.Patient's urine analysis is positive for nitrates, with multiple white blood cells and leukocyte esterase. She is a white blood cell count of 13,000, history of flank pain with CVA tenderness with nausea vomiting consistent with pyelonephritis. She was treated with Rocephin 1 g IV as well as Tylenol and Toradol which controlled her symptoms. Child patient was observed in the emergency department, she states that she is feeling much better at this time. She does not appear toxic, and she is stable for discharge and appropriate for outpatient management. Departure Diagnosis: Primary Impression: Pyelonephritis Condition: RUTHANN Moore PA-C Mar 10, 2017 23:41
[2017-03-11] MEDS ORDERED: SOD CHLORIDE 0.9% 1,000 ML IV ONE
[2017-03-11 01:19] LABS: BASOPHILS % 0.3 % (0.0-2.0); EOSINOPHILS % 0.1 % (0.0-7.0); HEMATOCRIT 33.7 % (37.0-47.0); HEMOGLOBIN 11.1 g/dl (12.0-16.0); LYMPHOCYTES # 1.8 10^3/ul (0.8-2.9); LYMPHOCYTES % 13.2 % (15.0-51.0); MEAN CORPUSCULAR HGB CONC 32.9 g/dl (32.0-37.0); MEAN PLATELET VOLUME 10.6 fl (7.4-10.4); MONOCYTE # 1.2 10^3/ul (0.3-0.9); MONOCYTES % 8.7 % (0.0-11.0); NEUTROPHILS % 77.4 % (39.0-77.0); PLATELET COUNT 350 10^3/UL (140-415); RED BLOOD COUNT 4.11 10^6/ul (4.20-5.40); WHITE BLOOD COUNT 13.4 10^3/ul (4.8-10.8)
[2017-03-11 01:38] LABS: ALBUMIN 4.2 g/dl (3.3-4.9); ALBUMIN/GLOBULIN RATIO 0.95; BILIRUBIN,INDIRECT 0.6 mg/dl (0-1.1); BILIRUBIN,TOTAL 0.6 mg/dl (0.2-1.3); CALCIUM 9.4 mg/dl (8.4-10.2); CREATININE 0.89 mg/dl (0.44-1.00); POTASSIUM 3.5 mmol/L (3.5-5.1); TOTAL PROTEIN 8.6 g/dl (6.1-8.1)
[2017-03-11 01:52] LABS: ADD UMIC YES; UR ASCORBIC ACID NEGATIVE (NEGATIVE); UR BACTERIA FEW /HPF (NONE SEEN); UR BILIRUBIN (Dip) NEGATIVE (NEGATIVE); UR BLOOD (Dip) 1+ mg/dL (NEGATIVE); UR CLARITY SLIGHTLY CLOUDY (CLEAR); UR COLOR YELLOW (YELLOW); UR GLUCOSE (Dip) NEGATIVE (NEGATIVE); UR KETONES (Dip) NEGATIVE (NEGATIVE); UR LEUKOCYTE ESTERASE (Dip) 2+ Leu/ul (NEGATIVE); UR NITRITE (Dip) POSITIVE (NEGATIVE); UR RBC 5 /HPF (0-5); UR SPECIFIC GRAVITY (Dip) 1.011 (1.003-1.030); UR SQUAMOUS EPITHELIAL CELL FEW /HPF (FEW); UR TOTAL PROTEIN (Dip) NEGATIVE (NEGATIVE); UR UROBILINOGEN (Dip) NEGATIVE (NEGATIVE)
[2017-03-11] MEDS ORDERED: CEFTRIAXONE 1 GM/50 ML (PMX) 50 ML IVPB ONE (02:00)
[2017-03-11] MEDS ORDERED: IBUP-1542 PO (02:08)
[2017-03-11] MEDS ORDERED: CEPH-443 PO (02:08)
== END 2017-03-11 02:32 | disposition home or self-care (01) ==
LOC: FTE 22:42
DX: N12 Tubulo-interstitial nephritis, not specified as acute or chronic (principal); R11.2 Nausea with vomiting, unspecified
CPT/HCPCS: 36415; 80053; 81001; 85025; 96374; 96375; J0696; J1885; J2405; J7030; Z7502; Z7610

== ENCOUNTER 2017-09-27 07:26 | Emergency (ER) | END 2017-09-27 10:51 | disposition home or self-care (01) ==

== ENCOUNTER 2017-10-01 06:58 | Emergency (ER) | END 2017-10-01 10:01 | disposition home or self-care (01) ==